=== PATIENT | female | born 1930 | race Caucasian/White ===

== ENCOUNTER 2016-04-10 11:33 | Emergency (ER) | payer OTHER ==
--- NOTE | 2016-04-10 12:36 | EDPHY ---
H & P Stated Complaint: diarrhea hx of diverticulitis Time Seen by Provider: 04/10/16 11:59 HPI/ROS: CHIEF COMPLAINT: Diarrhea and abdominal pain HISTORY OF PRESENT ILLNESS: This is an 85-year-old female with a history of diverticulitis who presents with 2 days of left lower quadrant abdominal pain and diarrhea. She has not seen blood in her stool. Pain is mild to moderate, crampy in nature. The diarrhea has not been copious. She has been vigorously rehydrating herself. She has not had fever although she had some chills yesterday. She denies dysuria, urgency, or frequency. No vomiting. She states that this is consistent with her previous bouts of diverticulitis. REVIEW OF SYSTEMS: A ten point review of systems was performed and is negative with the exception of the items mentioned in the HPI. Source: Patient Exam Limitations: No limitations - Personal History Current Tetanus/Diphtheria Vaccine: No Current Tetanus Diphtheria and Acellular Pertussis (TDAP): No Tetanus Vaccine Date: allergic - Medical/Surgical History Hx Asthma: No Hx Chronic Respiratory Disease: Yes Hx Diabetes: No Hx Cardiac Disease: No Hx Renal Disease: No Hx Cirrhosis: No Hx Alcoholism: No Hx HIV/AIDS: No Hx Splenectomy or Spleen Trauma: No Other PMH: diverticulitis, copd, afib, hernia repair x 2 - Social History Smoking Status: Former smoker Additional Social History: She lives alone. No tobacco use. Occasional alcohol. - Physical Exam Exam: General Appearance: Alert. Vital signs reviewed. Afebrile. She is doing a crossword puzzle when I enter the room. Eyes: Pupils equal and round, no conjunctival injection, no discharge. Anicteric. ENT, Mouth: Mucous membranes are moist, no oropharyngeal erythema or edema. Neck: No lymphadenopathy, supple. Respiratory: Lungs are clear to auscultation; no wheezes, rales, or rhonchi. Cardiovascular: Regular rate and rhythm; no murmur, rub, or gallop. Gastrointestinal: Abdomen is soft with mild tenderness in the left lower quadrant but no guarding or rebound, no masses or organomegaly, bowel sounds normal. Skin: Warm and dry, no rashes on exposed skin, normal color. Back: Nontender to palpation over the thoracolumbar spine. No CVAT. Extremities: No lower extremity edema, no calf tenderness or swelling. Neurological: Alert and oriented. Moving all four extremities easily and equally. Psychiatric: Normal affect. Constitutional: Initial Vital Signs Temperature (C) 36.7 C 04/10/16 11:38 Heart Rate 86 04/10/16 11:38 Respiratory Rate 14 04/10/16 11:38 Blood Pressure 140/97 H 04/10/16 11:38 O2 Sat (%) 97 04/10/16 11:38 O2 Delivery Mode Room Air Allergies/Adverse Reactions: Tetanus Vaccines and Toxoid [Tetanus] Allergy (Unknown, Verified 01/23/16 05:40) Unknown Home Medications: Medication Instructions Recorded Calcium 03/23/13 Cardizem 03/23/13 Celexa 03/23/13 Metronidazole 500 mg PO QID #28 tablet 01/23/16 levOFLOXACIN [levAQUIN (*)] 750 mg PO DAILY #10 tab 01/23/16 Medical Decision Making ED Course/Re-evaluation: 85-year-old female who presents with signs and symptoms of diverticulitis, which she has experienced in the past and has successfully treated as an outpatient. She does not want to undergo CT scan of her abdomen and pelvis unless absolutely necessary. Her abdominal exam reveals some mild to moderate left lower quadrant tenderness, no peritoneal signs. I do not suspect perforation. She does not otherwise appear ill, making abscess formation less likely. She and I discussed these complications of diverticulitis. I have agreed to write prescriptions for antibiotics if she will follow up with her primary care physician within the next 1-2 days. I have also stressed the importance of returning here should she worsen in any way. Differential Diagnosis: I considered a differential diagnosis that includes but is not limited to diverticulitis, diverticular abscess, viscus perforation and bacterial or viral or parasitic diarrhea. Departure - Departure Disposition: Home, Routine, Self-Care Clinical Impression: Diverticulitis Qualifiers: Diverticulitis site: unspecified part of intestinal tract Diverticulitis bleeding: without bleeding Diverticulitis complication: without perforation or abscess Qualifier Code: (K57.92) Diverticulitis of intestine, part unspecified, without perforation or abscess without bleeding Condition: Good Instructions: Diverticulitis (ED), Diverticulitis Diet (ED) Additional Instructions: I am writing prescriptions for one antibiotic--he should take it twice daily. Please fill these today and take them as directed. I would like you to see Dr. Henrietta Marcus within the next 1-2 days. If you worsen in any way--fever, bloody diarrhea, feeling lightheaded or faint, worsening abdominal pain--you need to return to the emergency department immediately. Referrals: Henrietta Marcus MD [Primary Care Provider] - As per Instructions
[2016-04-10 13:11] VITALS: BP 114/76; PULSE 84; RESP 16; TEMP 98.2; O2SAT 96
== END 2016-04-10 13:10 | disposition home or self-care (01) ==
DX: K57.92 Diverticulitis of intestine, part unspecified, without perforation or abscess without bleeding (principal); J44.9 Chronic obstructive pulmonary disease, unspecified; Z87.891 Personal history of nicotine dependence

== ENCOUNTER 2016-04-16 04:51 | Observation (INO) | payer OTHER ==
[2016-04-16] MEDS ORDERED: NS 1,000 ML IV ONE (05:05)
--- NOTE | 2016-04-16 05:05 | EDPHY ---
H & P Stated Complaint: low abd cramping x2d, nausea, diarrhea, similar to hx diverticulitis HPI/ROS: HPI CHIEF COMPLAINT: I may have diverticulitis HISTORY OF PRESENT ILLNESS: This patient very pleasant 85-year-old female significant past medical history for COPD but not on any oxygen, AFib, not on anticoagulation, history of diverticulitis. Patient tells me his she had diverticulitis approximately [address] scan. She tells me that she was recently seen in the emergency room on Sunday and given Augmentin for presumed diverticulitis. Patient at that time declined CT scan or blood work. She does tell me that Sunday and Sunday she did start to feel better however and Sunday she started having worsening lower abdominal pain with some watery diarrhea. Nausea but no vomiting. She denies fever. Denies generalized weakness. Her main complaint today is 6/10 lower crampy abdominal pain. Past Medical History: Diverticulitis, COPD, AFib Past Surgical History: Hernia repair Social History: Lives locally, daughter at bedside, has a local primary care doctor Dr. Arriola Family History: Noncontributory ROS REVIEW OF SYSTEMS: A comprehensive 10 point review of systems is otherwise negative aside from elements mentioned in the history of present illness. Exam Constitutional triage nursing summary reviewed, vital signs reviewed, awake/ alert. Eyes normal conjunctivae and sclera, EOMI, PERRLA. HENT normal inspection, atraumatic, moist mucus membranes, no epistaxis, neck supple/ no meningismus, no raccoon eyes. Respiratory clear to auscultation bilaterally, normal breath sounds, no respiratory distress, no wheezing. Cardiovascular rate normal, regular rhythm, no murmur, no edema, distal pulses normal. Gastrointestinal soft, mild tenderness to palpation lower abdomen left lower quadrant and right lower quadrant, normal bowel sounds, no distension, no pulsatile mass. Genitourinary no CVA tenderness. Musculoskeletal no midline vertebral tenderness, full range of motion, no calf swelling, no tenderness of extremities, no meningismus, good pulses, neurovascularly intact. Skin pink, warm, & dry, no rash, skin atraumatic. Neurologic awake, alert and oriented x 3, AAOx3, moves all 4 extremities equally, motor intact, sensory intact, CN II-XII intact, normal cerebellar, normal vision, normal speech. Psychiatric normal mood/affect. Heme/Lymph/Immune no lymphadenopathy. Differential diagnosis includes but is not limited to and in no particular order : acute diverticulitis, colitis, complicated diverticulitis, diverticulitis with perforation, diverticulitis with abscess Bowel obstruction, appendicitis, gallbladder disease, enteritis, perforated viscus, gastritis, GERD, esophagitis , urinary tract infection, pyelonephritis, kidney stones Medical Decision Making: This patient will have an IV established will obtain blood work, patient will a CT scan abdomen pelvis with IV contrast rule out significant acute diverticulitis or colitis or complicated diverticulitis with abscess. She did complete her entire course of Augmentin except for her last dose today however has ongoing lower abdominal pain she may be failing outpatient treatment if she has acute diverticulitis Re-evaluation: CT scan of the abdomen pelvis with IV contrast The results of the study are this showed mid sigmoid diverticulitis, no free air, no abscess. The study was read by Dr. Jackson. I viewed the images myself on the PACS system. 0651: I have ordered this patient IV ciprofloxacin and IV Flagyl due to acute diverticulitis she did complete almost entire course of Augmentin however has ongoing lower abdominal pain and nausea. Due to the failure of outpatient treatment I will admit her to the hospital for at least 1 day of IV antibiotics bowel rest IV fluids pain control. She is agreeable for this. 0703: This patient is resting comfortably here in the emergency room no acute distress. Agrees for admission. I consult the hospitalist Dr. Rangel who agrees for admission. Source: Patient - Personal History Current Tetanus/Diphtheria Vaccine: No Current Tetanus Diphtheria and Acellular Pertussis (TDAP): No Tetanus Vaccine Date: allergic - Medical/Surgical History Hx Asthma: No Hx Chronic Respiratory Disease: Yes Hx Diabetes: No Hx Cardiac Disease: No Hx Renal Disease: No Hx Cirrhosis: No Hx Alcoholism: No Hx HIV/AIDS: No Hx Splenectomy or Spleen Trauma: No Other PMH: diverticulitis, COPD, afib (resolved), hernia repair x 2 - Social History Smoking Status: Former smoker Constitutional: Initial Vital Signs Temperature (C) 36.5 C 04/16/16 04:54 Heart Rate 72 04/16/16 04:54 Respiratory Rate 16 04/16/16 04:54 Blood Pressure 142/70 H 04/16/16 04:54 O2 Sat (%) 96 04/16/16 04:54 O2 Delivery Mode Room Air O2 (L/minute) 2 Allergies/Adverse Reactions: Tetanus Vaccines and Toxoid [Tetanus] Allergy (Unknown, Verified 01/23/16 05:40) Unknown Home Medications: Medication Instructions Recorded CALCIUM 04/16/16 Citalopram 04/16/16 Diltiazem 04/16/16 Preservision Softgel 04/16/16 Medical Decision Making - Data Points Laboratory Results: Laboratory Results 04/16/16 05:10 04/16/16 05:10 04/16/16 04/16/16 06:20 05:10 WBC 10.65 H 10^3/uL (3.80-9.50) RBC 4.33 10^6/uL (4.18-5.33) Hgb 13.8 g/dL (12.6-16.3) Hct 40.4 % (38.0-47.0) MCV 93.3 fL (81.5-99.8) MCH 31.9 pg (27.9-34.1) MCHC 34.2 g/dL (32.4-36.7) RDW 13.6 % (11.5-15.2) Plt Count 261 10^3/uL (150-400) MPV 9.4 fL (8.7-11.7) Neut % (Auto) 74.9 H % (39.3-74.2) Lymph % (Auto) 14.2 L % (15.0-45.0) [place] % (Auto) 8.6 % (4.5-13.0) Eos % (Auto) 1.4 % (0.6-7.6) Baso % (Auto) 0.5 % (0.3-1.7) Nucleat RBC Rel Count 0.0 % (0.0-0.2) Absolute Neuts (auto) 7.98 H 10^3/uL (1.70-6.50) Absolute Lymphs (auto) 1.51 10^3/uL (1.00-3.00) Absolute Monos (auto) 0.92 H 10^3/uL (0.30-0.80) Absolute Eos (auto) 0.15 10^3/uL (0.03-0.40) Absolute Basos (auto) 0.05 10^3/uL (0.02-0.10) Absolute Nucleated RBC 0.00 10^3/uL (0-0.01) Immature Gran % 0.4 % (0.0-1.1) Immature Gran # 0.04 10^3/uL (0.00-0.10) PT 12.8 SEC (12.0-15.0) INR 0.97 (0.83-1.16) APTT 26.3 SEC (23.0-38.0) VBG Lactic Acid 1.0 mmol/L (0.7-2.1) Sodium 141 mEq/L (134-144) Potassium 4.6 mEq/L (3.5-5.2) Chloride 104 mEq/L (97-110) Carbon Dioxide 25 mEq/l (22-31) Anion Gap 12 mEq/L (8-16) BUN 15 mg/dL (7-23) Creatinine 0.8 mg/dL (0.6-1.0) Estimated GFR > 60 Glucose 97 mg/dL (70-100) Calcium 9.1 mg/dL (8.5-10.4) Total Bilirubin 0.8 mg/dL (0.1-1.4) Conjugated Bilirubin 0.2 mg/dL (0.0-0.5) Unconjugated Bilirubin 0.6 mg/dL (0.0-1.1) AST 27 IU/L (14-46) ALT 29 IU/L (9-52) Alkaline Phosphatase 88 IU/L (38-126) Total Protein 6.5 g/dL (6.3-8.2) Albumin 3.7 g/dL (3.5-5.0) Lipase 78.0 IU/L (23-300) Urine Color PALE YELLOW Urine Appearance CLEAR Urine pH 5.0 (5.0-7.5) Ur Specific [place] 1.009 (1.002-1.030) Urine Protein NEGATIVE (NEGATIVE) Urine Ketones NEGATIVE (NEGATIVE) Urine Blood NEGATIVE (NEGATIVE) Urine Nitrate NEGATIVE (NEGATIVE) Urine Bilirubin NEGATIVE (NEGATIVE) Urine Urobilinogen NEGATIVE EU (0.2-1.0) Ur Leukocyte Esterase NEGATIVE (NEGATIVE) Ur Culture Indicated? NOT INDICATED (NI) Urine Glucose NEGATIVE (NEGATIVE) Medications Given: Discontinued Medications Sodium Chloride (Ns) 1,000 mls @ 0 mls/hr IV ONCE ONE PRN Reason: Wide Open Stop: 04/16/16 05:06 Last Admin: 04/16/16 05:11 Dose: 1,000 mls Morphine Sulfate (Morphine) 6 mg IVP EDNOW ONE Stop: 04/16/16 05:06 Last Admin: 04/16/16 05:25 Dose: 6 mg Promethazine HCl (Phenergan Injection) 6.25 mg IVP EDNOW ONE Stop: 04/16/16 05:07 Last Admin: 04/16/16 05:25 Dose: 6.25 mg Departure - Departure Disposition: [facility] Inpatient Acute Clinical Impression: Acute diverticulitis Condition: Fair Referrals: Henrietta Marcus MD [Primary Care Provider] - As per Instructions
[2016-04-16] MEDS ORDERED: PROMETHAZINE HCL 25 MG/ML VIAL IVP ONE (05:06)
[2016-04-16] MEDS ORDERED: IOPAMIDOL (ISOVUE-300) 50 ML VIAL IV ONE (05:19)
[2016-04-16 05:20] LABS: % IMMATURE GRANULYOCYTES 0.4 % (0.0-1.1); ABSOLUTE IMMATURE GRANULOCYTES 0.04 10^3/uL (0.00-0.10); ADD DIFF? NO; ADD MORPH? NO; ADD SCAN? NO; ATYPICAL LYMPHOCYTE FLAG 10 (0-99); FRAGMENT RBC FLAG 0 (0-99); HEMATOCRIT 40.4 % (38.0-47.0); HEMOGLOBIN 13.8 g/dL (12.6-16.3); LEFT SHIFT FLG 10 (0-99); LIPEMIA HEMOLYSIS FLAG 90 (0-99); MEAN CELL HEMOGLOBIN 31.9 pg (27.9-34.1); MEAN CELL HEMOGLOBIN CONCENTR. 34.2 g/dL (32.4-36.7); MEAN CELL VOLUME 93.3 fL (81.5-99.8); MEAN PLATELET VOLUME 9.4 fL (8.7-11.7); PLATELET CLUMPS FLAG 0 (0-99); PLATELET COUNT 261 10^3/uL (150-400); RED BLOOD CELL COUNT 4.33 10^6/uL (4.18-5.33); RED CELL DISTRIBUTION WIDTH 13.6 % (11.5-15.2)
[2016-04-16 05:37] LABS: INR 0.97 (0.83-1.16); PROTIME(PATIENT) 12.8 SEC (12.0-15.0)
[2016-04-16 05:38] LABS: APTT 26.3 SEC (23.0-38.0)
[2016-04-16 05:56] LABS: ALANINE AMINOTRANSFERASE 29 IU/L (9-52); ALBUMIN 3.7 g/dL (3.5-5.0); ALKALINE PHOSPHATASE 88 IU/L (38-126); ANION GAP 12 mEq/L (8-16); ASPARTATE AMINOTRANSFERASE 27 IU/L (14-46); BILIRUBIN,TOTAL 0.8 mg/dL (0.1-1.4); BILIRUBIN-CONJUGATED 0.2 mg/dL (0.0-0.5); BILIRUBIN-UNCONJUGATED 0.6 mg/dL (0.0-1.1); CALCIUM 9.1 mg/dL (8.5-10.4); CARBON DIOXIDE 25 mEq/l (22-31); CHLORIDE 104 mEq/L (97-110); CREATININE 0.8 mg/dL (0.6-1.0); GLOMERULAR FILTRATION RATE > 60; GLUCOSE 97 mg/dL (70-100); POTASSIUM 4.6 mEq/L (3.5-5.2); SODIUM 141 mEq/L (134-144); TOTAL PROTEIN 6.5 g/dL (6.3-8.2)
[2016-04-16 06:35] LABS: COLOR PALE YELLOW; LEUKOCYTE ESTERASE,URINE NEGATIVE (NEGATIVE); NITRITE,URINE NEGATIVE (NEGATIVE)
[2016-04-16] MEDS ORDERED: CIPROFLOXACIN 400 MG/DEXTROSE 200 ML IV ONE (06:50)
[2016-04-16] MEDS ORDERED: ACETAMINOPHEN 325 MG TAB PO PRN (07:52)
[2016-04-16] MEDS ORDERED: oxyCODONE IR 5 MG TAB PO PRN (07:52)
[2016-04-16] MEDS ORDERED: KETOROLAC 30 MG/1 ML SDV IVP PRN (07:52)
[2016-04-16] MEDS ORDERED: ONDANSETRON 4 MG/2 ML VIAL IVP PRN (07:52)
[2016-04-16] MEDS ORDERED: NS 1,000 ML IV SCH (08:00)
[2016-04-16] MEDS: CALCIUM CARBONATE 500 MG CHEWABLE TAB PO PRN ×3 (08:36→17:13)
--- NOTE | 2016-04-16 09:12 | GHP ---
[f rep st] HISTORY AND PHYSICAL DATE OF ADMISSION: 04/16/2016 CHIEF COMPLAINT: Lower abdominal pain. HISTORY OF PRESENT ILLNESS: The patient is an 85-year-old female with a history of diverticulitis. She had a previous bout of diverticulitis 3 months ago. She had recurrence of symptoms last week and came to the emergency room last Sunday. She declined CT scan at that time, and she was given a pres cription for oral Augmentin and discharged from the emergency room. Her 1st 3 days on the Augmentin she was doing much better. However, now for the last 2 days, she has gone in the wrong direction. S he has had increasing lower crampy abdominal pain across her pelvis, /10 in nature. She has had abdirahman e mild diarrhea for the last 4-5 days. She has had nausea but no vomiting. She has only 2 tablets l eft of her Augmentin, so she is nearing the end of the course but she is worsening. She also complai ns of some GERD. PAST MEDICAL HISTORY: 1. COPD. 2. Atrial fibrillation. MEDICATIONS: Please see computer record for full detailed list. ALLERGIES: Tetanus. SOCIAL HISTORY: She smoked for 60 years and quit 4 years ago. She drinks 1 glass of wine per week. She lives alone. REVIEW OF SYSTEMS: Complete review of systems obtained. Review of systems is negative regarding con stitutional, HEENT, GI, pulmonary, cardiovascular, , hematologic, musculoskeletal, endocrine, psych e, except for positives and negatives as in the HPI. FAMILY HISTORY: Reviewed, noncontributory to presenting complaint. PHYSICAL EXAMINATION: GENERAL: Well-developed, well-nourished female in no acute distress. VITAL S IGNS: Temperature is 36.5, pulse 64, blood pressure 132/65, satting 96% on room air. EYES: Normal conjunctiva. Pupils react to light. ENT: Normal ears and nose. Hearing intact. Normal teeth. Irena pharynx moist. NECK: Trachea midline. No thyromegaly. CHEST: Normal effort. LUNGS: Clear to au scultation bilaterally. CARDIOVASCULAR: Regular rhythm. No murmur. No extremity edema. ABDOMEN: Soft, nontender. No hepatosplenomegaly. SKIN: Warm, dry, intact. No rash. MUSCULOSKELETAL: No cyanosis or clubbing. Strength 5/5 upper and lower extremities. NEUROLOGIC: Cranial nerves intact. Normal sensation to light touch. PSYCH: Alert and oriented x3. Normal mood and affect. Normal j udgment and insight. Normal memory. LABS: White count 10.65, hematocrit 40.4, platelets 261. Sodium 141, potassium 4.6, chloride 104, b icarb 25, BUN 15, creatinine 0.8, glucose 97. LFTs are negative. INR is 0.97. Lactate is 1.0. Uri nalysis is negative. This case was discussed with Dr. Cummins, emergency room physician. He did initiate her on IV ciprof loxacin and IV Flagyl. A CT scan of the abdomen and pelvis shows mid sigmoid diverticulitis. ASSESSMENT/PLAN: 1. Acute sigmoid diverticulitis. She has failed a course of outpatient oral Augmentin. She will no w be admitted to the hospital, initially under observation status for IV ciprofloxacin and IV Flagyl which can be continued. Clinical course will determine length of stay needed. Pain control, will co ntinue with IV morphine. 2. Chronic obstructive pulmonary disease, this is stable at baseline. She does not require oxygen a nd is 96% on room air. 3. Atrial fibrillation, now in a normal sinus rhythm. She appears to be on chronic diltiazem for ra te control which can be reconciled when available per pharmacy. She does not appear to be on any ant icoagulation for stroke prevention and that can be clarified. 4. Gastroesophageal reflux disease. She requests some Tums. If she has persistence of symptoms, co uld also offer proton pump inhibitor. COR STATUS: DNR. ADMISSION STATUS: 1. Will admit to observation as she may be able go home after 24 hours of IV antibiotics if she has rapid improvement. 2. DVT prophylaxis. She is high risk. Will place her on subcu Lovenox. /[id number]/MODL
[2016-04-16] MEDS: ENOXAPARIN 40 MG/0.4 ML SYR SC SCH (10:36)
--- NOTE | 2016-04-16 14:13 | HOSPPROG ---
Hospitalist Progress Note Assessment/Plan: 85-year-old woman with a history of AFib and diverticulitis comes in with recurrent abdominal pain failing outpatient treatment for diverticulitis with Augmentin. CT scan done today show sigmoid diverticulitis # diverticulitis: Continue Cipro and Flagyl * Reassess patient in a.m. to see if she is improved # AFib: Currently on diltiazem and no anticoagulation. In sinus rhythm * Continue diltiazem # depression: On Celexa Subjective: Chart reviewed Objective: Vital Signs Temp Pulse Resp BP Pulse Ox 36.6 C 65 16 142/67 H 97 04/16/16 08:30 04/16/16 08:30 04/16/16 08:30 04/16/16 08:30 04/16/16 08:30 04/15/16 04/16/16 04/17/16 05:59 05:59 05:59 Intake Total 1000 Balance 1000 PT 12.8 SEC (12.0-15.0) 04/16/16 05:10 INR 0.97 (0.83-1.16) 04/16/16 05:10 - Physical Exam Constitutional: uncomfortable Gastrointestinal: tenderness (Soft abdomen) ICD10 Worksheet Patient Problems: Problems Problem Status Diagnosed Acute diverticulitis Acute
--- NOTE | 2016-04-16 14:15 | CT ---
CT Scan of the Abdomen and Pelvis (With Contrast) April 16, 2016 Indication: Abdominal pain. Diarrhea. History of diverticulitis. Technique: No oral or rectal contrast. 90 mL of Isovue 300 were given intravenously by machine power injection. Multidetector helical CT imaging was performed from the diaphragm to the symphysis pubis . Dose reduction techniques were utilized. Comparison: CT abdomen and pelvis dated January 23, 2016. Findings: A 10-cm segment of sigmoid diverticulitis as evidenced by concentric low-attenuation wall t hickening and edema is associated with numerous diverticula, pericolonic stranding, and trace free fl uid in the low pelvis. No abscess, mass, or obstruction. Mild constipation. Small bowel pattern is no rmal. Moderate to large hiatal hernia in the posterior mediastinum is unchanged. No pneumoperitoneum, abscess, lymphadenopathy, or mass. The liver, spleen, pancreas, gallbladder, adrenal glands, and kidneys are normal. No hydronephrosis o r ureteral calculi. The urinary bladder is normal. The normal size uterus is shifted off to the left. No adnexal mass. The lung bases are clear. No bone lesions. Severe multilevel degenerative disk and facet arthropathy is unchanged. Impression: 1. Sigmoid diverticulitis with trace free fluid in the pelvis. No abscess or evidence of perforation. 2. No intraabdominal mass or lymphadenopathy. 3. Hiatal hernia and multilevel degenerative disk and facet arthropathy are unchanged. The study was performed as an emergency on-call case and discussed by telephone with Dr. Cummins at 6 :50 a.m. The final interpretation is concordant with the original communication.
[2016-04-16] MEDS: DILTIAZEM 30 MG TAB PO SCH (14:43)
[2016-04-16] MEDS: CITALOPRAM 20 MG TAB PO SCH (14:43)
[2016-04-16] MEDS: CIPROFLOXACIN 400 MG/DEXTROSE 200 ML IV SCH (21:04)
[2016-04-17 05:37] LABS: % IMMATURE GRANULYOCYTES 0.3 % (0.0-1.1); ABSOLUTE IMMATURE GRANULOCYTES 0.03 10^3/uL (0.00-0.10); ADD DIFF? NO; ADD MORPH? NO; ADD SCAN? NO; ATYPICAL LYMPHOCYTE FLAG 20 (0-99); FRAGMENT RBC FLAG 0 (0-99); HEMATOCRIT 34.6 % (38.0-47.0); HEMOGLOBIN 11.6 g/dL (12.6-16.3); LEFT SHIFT FLG 0 (0-99); LIPEMIA HEMOLYSIS FLAG 80 (0-99); MEAN CELL HEMOGLOBIN 31.2 pg (27.9-34.1); MEAN CELL HEMOGLOBIN CONCENTR. 33.5 g/dL (32.4-36.7); MEAN PLATELET VOLUME 9.7 fL (8.7-11.7); PLATELET CLUMPS FLAG 10 (0-99); PLATELET COUNT 229 10^3/uL (150-400); RED BLOOD CELL COUNT 3.72 10^6/uL (4.18-5.33); RED CELL DISTRIBUTION WIDTH 13.6 % (11.5-15.2)
[2016-04-17 06:03] LABS: ANION GAP 6 mEq/L (8-16); CALCIUM 7.8 mg/dL (8.5-10.4); CARBON DIOXIDE 25 mEq/l (22-31); CHLORIDE 108 mEq/L (97-110); CREATININE 0.8 mg/dL (0.6-1.0); GLOMERULAR FILTRATION RATE > 60; GLUCOSE 89 mg/dL (70-100); POTASSIUM 4.6 mEq/L (3.5-5.2); SODIUM 139 mEq/L (134-144)
[2016-04-17] MEDS ORDERED: PRESERVISION AREDS 2 EYE VITAMIN 1 EACH PO SCH (09:00)
[2016-04-17] MEDS: CIPROFLOXACIN 400 MG/DEXTROSE 200 ML IV SCH (09:06)
[2016-04-17] MEDS: DILTIAZEM 30 MG TAB PO SCH (09:07)
[2016-04-17] MEDS: CITALOPRAM 20 MG TAB PO SCH (09:10)
[2016-04-17] MEDS: ENOXAPARIN 40 MG/0.4 ML SYR SC SCH (09:12)
--- NOTE | 2016-04-17 12:14 | GDS ---
[f rep st] DISCHARGE SUMMARY DIAGNOSES: 1. Diverticulitis, sigmoid colon. No evidence of abscess or perforation. 2. Atrial fibrillation, controlled on diltiazem and no anticoagulation at this time. 3. Depression on Celexa. PROCEDURES DONE: Abdominal CT scan showing sigmoid diverticulitis with trace free fluid in the pelvi s. No abscess or evidence of perforation. No intraabdominal mass or lymphadenopathy and a hiatal he rnia noted. HOSPITAL COURSE: The patient is a delightful 85-year-old, relatively healthy woman with a history of AFib and previous diverticulitis who comes in with abdominal pain. She had been seen in the ER prev iously, treated with oral Augmentin and sent home. She continued to have pain, returned to the ER. A CT scan was done, which revealed the above findings. She was admitted overnight, placed on Cipro a nd Flagyl and improved significantly overnight. She was able to eat a regular diet. She had no pain and was anxious to get discharged. We will transition her to oral medications to make sure she can tolerate the Flagyl and Cipro prior to discharge. CONDITION ON DISCHARGE: Good. PHYSICAL EXAMINATION: VITAL SIGNS: Stable. She has been afebrile. Heart rate 70, blood pressure 1 03/61, respirations 17. She is 95% on room air. GENERAL: She is very pleasant. She is alert and o riented. HEART: Regular. ABDOMEN: Benign, soft, nontender to palpation. Normal bowel sounds. DISCHARGE MEDICATIONS: She will resume her home meds. Additionally, she will be placed on Cipro 250 b.i.d. and Flagyl 250 t.i.d. Please see home med rec form for full details. FOLLOWUP INSTRUCTIONS: She has a followup scheduled with Henrietta Marcus on Sunday for her physical exam. She will keep that appointment and follow up with her diverticulitis as well. /[id number]/MODL
[2016-04-17 12:39] VITALS: BP 136/61; PULSE 84; RESP 16; TEMP 98; O2SAT 91
[2016-04-17] MEDS ORDERED: metroNIDAZOLE 500 MG TAB PO SCH (13:00)
[2016-04-17] MEDS ORDERED: CIPROFLOXACIN 250 MG TAB PO SCH (20:00)
== END 2016-04-17 16:01 | disposition home or self-care (01) ==
LOC: INTOOBSV 06:59 → F1N 08:35
PROVIDERS: ADMIT Internal Medicine; ATTEND Internal Medicine
DX: K57.32 Diverticulitis of large intestine without perforation or abscess without bleeding (principal); J44.9 Chronic obstructive pulmonary disease, unspecified; I48.91 Unspecified atrial fibrillation; K21.9 Gastro-esophageal reflux disease without esophagitis; F32.9 Major depressive disorder, single episode, unspecified
CPT/HCPCS: 74177; 96361; 96365; 96375; 97161; 97165; 99285; G0378; G8978; G8979; G8980; G8987; G8988; G8989; J0744; J1650; J1885; J2405; J2550; Q9967

== ENCOUNTER 2016-05-17 08:59 | Emergency (ER) | payer OTHER ==
[2016-05-17 09:18] VITALS: BP 145/85; PULSE 78; RESP 18; TEMP 98; O2SAT 97
[2016-05-17] MEDS ORDERED: IBUPROFEN 800 MG TAB PO ONE (09:19)
[2016-05-17] MEDS ORDERED: BENZONATATE 100 MG CAP PO ONE (09:20)
--- NOTE | 2016-05-17 09:25 | UCPHY ---
H & P Time Seen by Provider: 05/17/16 09:06 Patient Type: Established HPI/ROS: HPI Sore throat, cough. Cough. 85-year-old female by private vehicle. She complains of a worsening sore throat over the last 2 days accompanied with a non productive cough and nasal congestion. No fever. Denies myalgias and arthralgias. No other complaint. ROS: Constitutional: No fever, no chills. No weakness. Eyes: No discharge. No changes in vision. ENT: As above. Respiratory: As above. No shortness of breath. Cardiac: No chest pain, no palpitations. Gastrointestinal: No abdominal pain, no vomiting, no diarrhea. Genitourinary: No hematuria. No dysuria or increased frequency with urination. Musculoskeletal: No back pain. No neck pain. No myalgias or arthralgias. Skin: No rashes. Neurological: No headache. No focal weakness or altered sensation. Past medical history: She denies any significant past medical history. Social history: . Lives by herself. Has friends and family is nearby Physical Exam: General Appearance: Alert, no distress. This patient is responding to questions appropriately and in full sentences. This patient appears well- hydrated and well-nourished. Eyes: Pupils equal and round no pallor or injection. No lid edema, erythema or injection. ENT, Mouth: Mucous membranes are moist. The pharyngeal tissues are unremarkable. No edema or swelling. No asymmetry suggestive of abscess. No erythema or exudates. Neck is clear on auscultation. No stridor. No voice changes. Respiratory: There are no retractions, lungs are clear to auscultation with good air movement bilaterally. Cardiovascular: Regular rate and rhythm. No murmur. Neurological: Motor sensory function is grossly intact. Cranial nerves are normal. Gait is normal. Skin: Warm and dry, no rashes. Musculoskeletal: Neck is supple and nontender. Extremities are symmetrical. All joints range without pain or impingement. Psychiatric: No agitation. No depression. Database: Rapid strep-negative. Rapid flu-negative. EKG: Imaging: Chest x-ray PA and lateral; the cardiac mediastinal silhouette is unremarkable. No evidence of infiltrate or pneumothorax. Mild bronchitis. No other acute cardiopulmonary disease process noted. Interpreted by me. Procedures: Emergency department course: After my initial evaluation, she was given 200 mg of Tessalon Perle and 600 mg of ibuprofen. She was sent for x-rays. Her vital signs have been reviewed and are normal. She is afebrile. 10:10 a.m., patient re-evaluated. Resting at this time. Sitting upright on the gurney. She states that the ibuprofen helped her throat pain some but she still has considerable pain with swallowing. I discussed giving her a narcotic pain medication such as Vicodin. She does not want to do this. I then discussed a 1 time dose of Decadron. She was in agreement she was given 10 mg of oral Decadron. 10:25 a.m., results of influenza and chest x-ray results and rapid strep results discussed with the patient. Patient's presentation is consistent with a viral syndrome. Antibiotics are not indicated at this time. She does feel comfortable going home and I feel she is safe for discharge. Follow-up with her primary care physician was discussed. She will be prescribed ibuprofen for sore throat to be taken over the next 2-3 days as well as Tessalon Perles for cough. Return to Urgent Care/emergency department precautions were discussed with her in detail. All of her questions were answered. She was discharged in good condition. Differential Diagnosis: The differential diagnosis on this patient includes but is not limited to upper respiratory infection, viral pharyngitis, influenza. Pneumonia, streptococcal pharyngitis, serious bacterial infection unlikely. This represents a partial list of diagnoses considered. These considerations are based on history, physical exam, past history, reassessment and diagnostic testing. Smoking Status: Never smoked Constitutional: Initial Vital Signs Temperature (C) 36.6 C 05/17/16 09:15 Heart Rate 78 05/17/16 09:15 Respiratory Rate 18 05/17/16 09:15 Blood Pressure 145/85 H 05/17/16 09:15 O2 Sat (%) 97 05/17/16 09:15 O2 Delivery Mode Room Air Allergies/Adverse Reactions: Tetanus Vaccines and Toxoid [Tetanus] Allergy (Unknown, Verified 01/23/16 05:40) Unknown Home Medications: Medication Instructions Recorded Amoxicillin/Potassium Clav 1 tab PO BID 04/16/16 [Amox-Clav 875-125 mg Tablet] Citalopram Hydrobromide 20 mg PO DAILY 04/16/16 [Citalopram HBr] Diltiazem HCl 30 mg PO DAILY 04/16/16 Vit C/Dl-E AC/Lut/Copper/Znox 1 each PO DAILY 04/16/16 [Preservision Softgel] Calcium Carbonate [Tums 500MG (*)] 500 mg PO TID PRN #0 tab.chew 04/17/16 Ciprofloxacin [Cipro] 250 mg PO BID@1000,2000 #20 tab 04/17/16 metroNIDAZOLE [Flagyl 500 mg (*)] 250 mg PO Q8HRS #30 tab 04/17/16 Benzonatate [Tessalon Pearles] 100 mg PO TID #12 cap 05/17/16 Medical Decision Making - Data Points Laboratory Results: 05/17/16 05/17/16 Unknown 09:10 Influenza Typ A,B (DFA) NEGATIVE FOR FLU (NEGATIVE) Group A Strep Screen NEGATIVE (NEGATIVE) Group A Strep DNA Pending Medications Given: Discontinued Medications Benzonatate (Tessalon Pearles) 200 mg PO EDNOW ONE Stop: 05/17/16 09:21 Last Admin: 05/17/16 09:53 Dose: 200 mg Ibuprofen (Motrin) 600 mg PO EDNOW ONE Stop: 05/17/16 09:20 Last Admin: 05/17/16 09:53 Dose: 600 mg Departure - Departure Disposition: Home, Routine, Self-Care Clinical Impression: Upper respiratory infection, Pharyngitis Condition: Good Instructions: Pharyngitis (ED) Additional Instructions: Read and follow provided instructions. Follow-up with your primary care physician in 1-2 days for re-evaluation. Ibuprofen dosin mg every 6 hours with meals for the next 3 days only. Take medication as prescribed only. Return to the emergency department for worsening sore throat, cough, fever, difficulty swallowing, voice changes or other serious concerns. Referrals: Henrietta Marcus MD [Primary Care Provider] - As per Instructions Prescriptions: Benzonatate [Tessalon Pearles] 100 mg PO TID #12 cap - PQRS PQRS Measurement: 134: Depression screening and followup, PRIME -PHQ2 (12 years and older) Over the last 2 weeks, how often have you been bothered by any of the following problems? 1. Feeling down, depressed, or hopeless? 2. Little interest or pleasure in doing things? Answered no to both questions. 130: Documentation of medications. Reviewed all patient medications, doses, route and frequency. 226: Do you smoke? No. 47: 65 and older: Advanced care planning. Patient designates surrogate decision maker as family. 51: 18 years old and older with diagnosis of COPD, spirometry performance. NA 52: 18 years old and older with COPD and symptoms of COPD or FEV1<60% predicted prescribed a B Agonist. NA
[2016-05-17] MEDS ORDERED: DEXAMETHASONE 4 MG TAB PO ONE (10:12)
--- NOTE | 2016-05-17 12:04 | DX ---
PA and Lateral Chest Clinical Indications: Cough in an 85-year-old female. Comparison: January 06, 2014. Findings: No focal pulmonary consolidation is identified.. There is hyperexpansion seen with flatteni ng of the hemidiaphragms noted. The large hiatal hernia is again noted. The heart size and pulmonary vascularity are normal. Pleural surfaces and bony thorax are negative for acute abnormality. Aortic t ortuosity in association with prominence of the aortic knob may reflect systemic hypertension. Impression: Hyperexpansion suggesting airways disease with no superimposed acute abnormality identifi ed.
== END 2016-05-17 10:00 | disposition home or self-care (01) ==
LOC: CED 08:59
DX: J06.9 Acute upper respiratory infection, unspecified (principal)
CPT/HCPCS: 71020; G0463; 87400-PO; 87880-PO; 99214-PO

== ENCOUNTER → 2017-01-15 | Outpatient (CLI) | payer OTHER | LOC: BMCIMAGING 08:47 | PROVIDERS: ATTEND Internal Medicine | DX: Z12.31 Encounter for screening mammogram for malignant neoplasm of breast (principal) | CPT/HCPCS: G0202 ==